=== PATIENT | male | born 1965 ===

== ENCOUNTER 2018-05-27 16:15 | Emergency (ER) | payer SELFPAY ==
[~2018-05-27] VITALS: Ht 180.3 cm; Wt 123.8 kg
[2018-05-27 16:25] VITALS: BP 126/77
== END 2018-05-27 17:48 | disposition left against medical advice (07) ==
LOC: ER 16:17
DX: R55 Syncope and collapse (principal); Z53.21 Procedure and treatment not carried out due to patient leaving prior to being seen by health care provider
CPT/HCPCS: 93005